=== PATIENT | male | born 1975 | race African-American/Black ===

== ENCOUNTER 2018-08-21 11:08 | Inpatient (IN) | payer OTHER ==
[2018-08-21] MEDS: SOD CHLORIDE 0.9% 1,000 ML IV ×2 (12:34→13:47)
[2018-08-21 12:38] LABS: ADD MAN DIFF? NO
[2018-08-21 12:40] LABS: BASOPHIL # 0.1 10^3/ul (0.0-0.1); BASOPHILS % 0.4 % (0.0-2.0); HEMATOCRIT 53.6 % (42.0-52.0); HEMOGLOBIN 17.5 g/dl (14.0-18.0); LYMPHOCYTES # 1.5 10^3/ul (0.8-2.9); LYMPHOCYTES % 12.3 % (15.0-51.0); MEAN CORPUSCULAR HGB CONC 32.6 g/dl (32.0-37.0); MEAN CORPUSCULAR VOLUME 88.7 fl (82.0-101.0); MEAN PLATELET VOLUME 12.2 fl (7.4-10.4); MONOCYTE # 0.9 10^3/ul (0.3-0.9); MONOCYTES % 6.8 % (0.0-11.0); PLATELET COUNT 316 10^3/UL (140-415); RED BLOOD COUNT 6.04 10^6/ul (4.70-6.10); RED CELL DISTRIBUTION WIDTH 12.6 % (11.5-14.5)
[2018-08-21 12:40] LABS: WHITE BLOOD COUNT 12.5 10^3/ul (4.8-10.8)
[2018-08-21 12:56] LABS: ALANINE AMINOTRANSFERASE 48 IU/L (13-69); ALBUMIN 5.3 g/dl (3.3-4.9); ALBUMIN/GLOBULIN RATIO 1.12; ALKALINE PHOSPHATASE 197 IU/L (42-121); ANION GAP 32 (5-13); BILIRUBIN,INDIRECT 0.3 mg/dl (0-1.1); BILIRUBIN,TOTAL 0.3 mg/dl (0.2-1.3); BLOOD UREA NITROGEN 24 mg/dl (7-20); CARBON DIOXIDE 14 mmol/L (21-31); CHLORIDE 101 mmol/L (97-110); CREATININE 1.47 mg/dl (0.61-1.24); Estimated GFR > 60 mL/min (>60); LIPASE 173 U/L (23-300); POTASSIUM 5.3 mmol/L (3.5-5.1); SODIUM 147 mmol/L (135-144)
[2018-08-21 13:12] LABS: ASPARTATE AMINO TRANSFERASE 64 IU/L (15-46); GLUCOSE 627 mg/dl (70-220)
[2018-08-21 13:30] LABS: MODE ROOM AIR; MetHgb Venous 0.3 %; Sample Type Blood venous; Site VENOUS LINE; Venous COHb 0.4 %; Venous Fraction OxyHgb 59.8 %; Venous Oxygen Sat 60.2 mmHG (55.0-75.0); Venous Total Hemglobin 18.3 g/dl
[2018-08-21] MEDS ORDERED: SOD CHLORIDE 0.9% 1,000 ML IV ×2 (13:37→14:54)
[2018-08-21] MEDS ORDERED: NS + KCL 40 MEQ 1,000 ML IV ×2 (13:37→14:54)
[2018-08-21] MEDS ORDERED: DEXTROSE 10 %/0.45 % NACL 1,000 ML IV ×2 (13:37→14:54)
[2018-08-21] MEDS ORDERED: D10/0.45% NACL + KCL 40 MEQ 1,000 ML IV ×2 (13:37→14:54)
[2018-08-21 13:52] LABS: PHOSPHORUS 7.5 mg/dl (2.5-4.9)
[2018-08-21 13:52] LABS: MAGNESIUM 3.3 mg/dl (1.7-2.5)
[2018-08-21] MEDS ORDERED: DEXTROSE 50% 50 ML SYRINGE IV ×8 (14:00→23:00)
[2018-08-21] MEDS: LACTATED RINGER'S 1,000 ML IV (14:33)
[2018-08-21] MEDS: NS + KCL 30 MEQ 1,000 ML IV ×2 (14:34→20:36)
[2018-08-21] MEDS: INSULIN REGULAR, HUMAN 100 UNIT in SOD CHLORIDE 0.9% 100 ML IV (14:37)
[2018-08-21] MEDS ORDERED: D10/0.45% NACL + KCL 30 MEQ 1,000 ML IV (14:54)
[2018-08-21] MEDS ORDERED: INSULIN REGULAR, HUMAN 100 UNIT in SOD CHLORIDE 0.9% 100 ML IV (15:00)
[2018-08-21] MEDS: ACCU-CHEK XX ×8 (15:30→23:31)
[2018-08-21 15:38] LABS: MODE ROOM AIR; MetHgb Venous 0.5 %; Sample Type Blood venous; Site VENOUS LINE; Venous COHb 0.4 %; Venous Fraction OxyHgb 61.3 %; Venous Oxygen Sat 61.9 mmHG (55.0-75.0); Venous Total Hemglobin 15.8 g/dl
[2018-08-21] MEDS: D10/0.45% NACL + KCL 30 MEQ 1,000 ML IV ×2 (15:51→16:30)
[2018-08-21 15:53] LABS: ADD UMIC YES; UR ASCORBIC ACID NEGATIVE (NEGATIVE); UR BILIRUBIN (Dip) NEGATIVE (NEGATIVE); UR BLOOD (Dip) 1+ mg/dL (NEGATIVE); UR CLARITY CLEAR (CLEAR); UR COLOR STRAW (YELLOW); UR GLUCOSE (Dip) 3+ mg/dL (NEGATIVE); UR KETONES (Dip) 2+ mg/dL (NEGATIVE); UR LEUKOCYTE ESTERASE (Dip) NEGATIVE Leu/ul (NEGATIVE); UR NITRITE (Dip) NEGATIVE (NEGATIVE); UR RBC 0 /HPF (0-5); UR SPECIFIC GRAVITY (Dip) 1.031 (1.003-1.030); UR TOTAL PROTEIN (Dip) 1+ mg/dl (NEGATIVE); UR UROBILINOGEN (Dip) NEGATIVE (NEGATIVE); UR WBC 1 /HPF (0-5)
[2018-08-21] MEDS ORDERED: GLUCAGON 1 MG INJ IM (16:00)
[2018-08-21] MEDS ORDERED: GLUCOSE GEL 15 GRAM TUBE PO ×2 (16:00)
[2018-08-21] MEDS ORDERED: GLUCOSE GEL 15 GRAM TUBE BUCCAL (16:00)
[2018-08-21 16:06] LABS: ANION GAP 22 (5-13); BLOOD UREA NITROGEN 22 mg/dl (7-20); CALCIUM 8.5 mg/dl (8.4-10.2); CARBON DIOXIDE 15 mmol/L (21-31); CHLORIDE 112 mmol/L (97-110); CREATININE 1.16 mg/dl (0.61-1.24); Estimated GFR > 60 mL/min (>60); MAGNESIUM 2.9 mg/dl (1.7-2.5); PHOSPHORUS 3.9 mg/dl (2.5-4.9); POTASSIUM 4.8 mmol/L (3.5-5.1); SODIUM 149 mmol/L (135-144)
[2018-08-21 16:07] LABS: GLUCOSE 429 mg/dl (70-220)
[2018-08-21 18:30] LABS: MODE ROOM AIR; MetHgb Venous 0.4 %; Sample Type Blood venous; Site OTHER; Venous COHb 0.4 %; Venous Fraction OxyHgb 82.6 %; Venous Oxygen Sat 83.3 mmHG (55.0-75.0); Venous Total Hemglobin 17.1 g/dl
[2018-08-21 19:17] LABS: ANION GAP 18 (5-13); BLOOD UREA NITROGEN 20 mg/dl (7-20); CARBON DIOXIDE 17 mmol/L (21-31); CHLORIDE 114 mmol/L (97-110); CREATININE 0.99 mg/dl (0.61-1.24); Estimated GFR > 60 mL/min (>60); GLUCOSE 305 mg/dl (70-220); MAGNESIUM 3.2 mg/dl (1.7-2.5); PHOSPHORUS 1.8 mg/dl (2.5-4.9); POTASSIUM 4.3 mmol/L (3.5-5.1); SODIUM 149 mmol/L (135-144)
[2018-08-21 22:02] LABS: AADO2 Venous 53.9 mmHg; MODE ROOM AIR; MetHgb Venous 0.4 %; Site VENOUS LINE; Venous COHb 0.4 %; Venous Fraction OxyHgb 87.9 %; Venous Oxygen Sat 88.6 mmHG (55.0-75.0); Venous Total Hemglobin 16.1 g/dl
[2018-08-21 22:20] LABS: ANION GAP 12 (5-13); BLOOD UREA NITROGEN 17 mg/dl (7-20); CARBON DIOXIDE 21 mmol/L (21-31); CHLORIDE 115 mmol/L (97-110); Estimated GFR > 60 mL/min (>60); GLUCOSE 306 mg/dl (70-220); MAGNESIUM 3.1 mg/dl (1.7-2.5); PHOSPHORUS 0.9 mg/dl (2.5-4.9); POTASSIUM 4.2 mmol/L (3.5-5.1); SODIUM 148 mmol/L (135-144)
[2018-08-22] MEDS: ACCU-CHEK XX ×13 (00:07→12:27)
[2018-08-22] MEDS: INSULIN HUMAN REGULAR 100 UNIT in SOD CHLORIDE 0.9% 99 ML IV (00:13)
[2018-08-22 04:59] LABS: ADD MAN DIFF? NO
[2018-08-22 05:08] LABS: WHITE BLOOD COUNT 11.1 10^3/ul (4.8-10.8)
[2018-08-22 05:08] LABS: BASOPHILS % 0.4 % (0.0-2.0); EOSINOPHILS # 0.1 10^3/ul (0.0-0.5); EOSINOPHILS % 0.5 % (0.0-7.0); HEMATOCRIT 45.7 % (42.0-52.0); HEMOGLOBIN 15.1 g/dl (14.0-18.0); LYMPHOCYTES # 1.8 10^3/ul (0.8-2.9); LYMPHOCYTES % 15.8 % (15.0-51.0); MEAN CORPUSCULAR HEMOGLOBIN 29.2 pg (29.0-33.0); MEAN CORPUSCULAR VOLUME 88.2 fl (82.0-101.0); MEAN PLATELET VOLUME 12.5 fl (7.4-10.4); MONOCYTE # 1.2 10^3/ul (0.3-0.9); MONOCYTES % 11.2 % (0.0-11.0); NEUTROPHILS % 71.6 % (39.0-77.0); PLATELET COUNT 276 10^3/UL (140-415); RED BLOOD COUNT 5.18 10^6/ul (4.70-6.10); RED CELL DISTRIBUTION WIDTH 12.7 % (11.5-14.5)
[2018-08-22 05:38] LABS: ANION GAP 11 (5-13); BLOOD UREA NITROGEN 17 mg/dl (7-20); CARBON DIOXIDE 21 mmol/L (21-31); CHLORIDE 124 mmol/L (97-110); CREATININE 0.98 mg/dl (0.61-1.24); Estimated GFR > 60 mL/min (>60); GLUCOSE 168 mg/dl (70-220); MAGNESIUM 3.1 mg/dl (1.7-2.5); PHOSPHORUS 0.9 mg/dl (2.5-4.9); POTASSIUM 3.6 mmol/L (3.5-5.1); SODIUM 156 mmol/L (135-144)
[2018-08-22] MEDS ORDERED: POTASSIUM CHLORIDE 30 MEQ in SOD CHLORIDE 0.9% 985 ML IV (08:00)
[2018-08-22] MEDS ORDERED: GLUCAGON 1 MG INJ IM (09:30)
[2018-08-22] MEDS ORDERED: GLUCOSE GEL 15 GRAM TUBE BUCCAL (09:30)
[2018-08-22] MEDS ORDERED: DEXTROSE 50% 50 ML SYRINGE IV ×2 (09:30)
[2018-08-22] MEDS ORDERED: GLUCOSE GEL 15 GRAM TUBE PO ×2 (09:30)
[2018-08-22] MEDS: POTASSIUM PHOSPHATE 40 MEQ in SOD CHLORIDE 0.9% 250 ML IVPB (09:39)
[2018-08-22] MEDS: INSULIN GLARGINE [LANTus] (100 UNITS/ML) SYG SC (10:18)
[2018-08-22 14:27] LABS: HEMOGLOBIN A1C 13.6 % (0-5.9)
== END 2018-08-22 15:30 | disposition home health service (06) | DRG 639 ==
LOC: E/R 11:08 → ICU 14:21
DX: E10.10 Type 1 diabetes mellitus with ketoacidosis without coma (principal); E86.0 Dehydration; R19.7 Diarrhea, unspecified; Z79.4 Long term (current) use of insulin
CPT/HCPCS: 36415; 74176; 80048; 80053; 81001; 82803; 82962; 83036; 83690; 83735; 84100; 85025; 96360; 99291-25